=== PATIENT | male | born 1990 | race African-American/Black ===

== ENCOUNTER 2016-12-27 05:46 | Day surgery (SDC) | payer OTHER ==
[2016-12-27] MEDS ORDERED: ceFAZolin 2 GM/50 ML 50 ML IV ONE (06:27)
[2016-12-27] MEDS ORDERED: CELECOXIB 100 MG CAPSULE PO ONE (06:27)
[2016-12-27] MEDS ORDERED: ACETAMINOPHEN 1,000 MG/100 ML 100 ML IV ONE (06:28)
[2016-12-27] MEDS ORDERED: LACTATED RINGERS 1,000 ML IV ONE (06:37)
[2016-12-27] MEDS ORDERED: BUPIVACAINE 0.25% PF 30 ML VIAL SUBQ ONE ×2 (08:48→10:26)
[2016-12-27] MEDS ORDERED: PHENYLEPHRINE 10 MG/ML VIAL IV ONE (09:16)
[2016-12-27] MEDS ORDERED: GLYCOPYRROLATE 1 MG/5 ML VIAL IVP ONE (09:16)
[2016-12-27] MEDS ORDERED: ROPIVACAINE 0.2% PF 20 ML AMPULE SUBQ ONE (09:16)
[2016-12-27] MEDS ORDERED: ROCURONIUM 50 MG/5 ML VIAL IVP ONE (09:16)
[2016-12-27] MEDS ORDERED: DEXAMETHASONE 4 MG/ML VIAL IVP ONE (09:16)
[2016-12-27] MEDS ORDERED: PROPOFOL 200 MG/20 ML VIAL IVP ONE (09:16)
[2016-12-27] MEDS ORDERED: NEOSTIGMINE 1 MG/1 ML 10 ML MDV IVP ONE (09:16)
[2016-12-27] MEDS ORDERED: LIDOCAINE-MPF 2% 5 ML VIAL IM ONE (09:16)
[2016-12-27] MEDS ORDERED: ONDANSETRON 4 MG/2 ML VIAL IVP ONE (09:16)
[2016-12-27] MEDS ORDERED: fentaNYL 100 MCG/2 ML VIAL IVP ONE (09:16)
[2016-12-27] MEDS ORDERED: EPINEPHrine 1 MG/ML AMP IVP ONE (09:16)
[2016-12-27] MEDS ORDERED: MIDAZOLAM 2 MG/2 ML VIAL IVP ONE (09:16)
[2016-12-27] MEDS ORDERED: oxyCOD/ACETAMIN 5 MG/325 MG TABLET PO ONE (12:50)
== END 2016-12-27 05:47 | disposition home or self-care (01) ==
PROC: 0LS30ZZ Reposition Right Upper Arm Tendon, Open Approach (ICD-10-PCS; 2016-12-27)
PROC: 0MM14ZZ Reattachment of Right Shoulder Bursa and Ligament, Percutaneous Endoscopic Approach (ICD-10-PCS; principal; 2016-12-27 07:30)
PROC: 0RBJ4ZZ Excision of Right Shoulder Joint, Percutaneous Endoscopic Approach (ICD-10-PCS; 2016-12-27 07:30)
DX: S43.431A Superior glenoid labrum lesion of right shoulder, initial encounter (principal); M75.41 Impingement syndrome of right shoulder; M75.81 Other shoulder lesions, right shoulder; K21.9 Gastro-esophageal reflux disease without esophagitis; Z53.33 Arthroscopic surgical procedure converted to open procedure
CPT/HCPCS: 23929; 29807; 29822; 73060; A9270; C1713; J0131; J0690; J7120